=== PATIENT | female | born 1960 | race African-American/Black ===

== ENCOUNTER 2016-04-14 09:30 | Emergency (ER) | payer OTHER ==
[2016-04-14 09:37] VITALS: PULSE 87; TEMP 97.4; BMI 35.2
[2016-04-14 10:50] VITALS: BP 138/76
--- NOTE | 2016-04-14 10:56 | EDPRACDOC ---
- General Information Chief Complaint: Generalized Weakness Stated Complaint: HEARTRATE CHECK Time Seen by Provider: 04/14/16 09:39 Information Source: Patient Mode Of Arrival: Car - History of Present Illness Onset: unknown HPI: PT PRESENTS TODAY REQUESTING MEDICAL CLEARANCE FOR HER JOB. PT STATES THAT SHE NEEDS CLEARANCE TO PERFORM A PHYSICAL TEST. STATES THAT AT WORK, THEY PERFORMED VITAL SIGNS AND WAS FOUND TO HAVE HEART RATE OF 109, AND HR IS REQUIRED TO BE LESS THAT 100 FOR THE TEST. PT HAS NO PHYSICAL SYMPTOMS. NO PMH /MEDS. Relevent History of: Reports: None Hypertension Treatment: Reports: None Recent Use of: Reports: None Associated Signs and Symptoms: Reports: None ED Past Medical History - History Reviewed Yes Nurses notes reviewed and agree except as marked - Patient Medical History Cardiac History: Reports: Hypercholesterolemia EDM Review of Systems - Review of Systems ROS Negative Except as Marked: Yes All systems reviewed and were negative except as marked Constitutional: No Symptoms Reported Respiratory: No Symptoms Reported Cardiovascular: No Symptoms Reported Gastrointestinal: No Symptoms Reported Neurological: No Symptoms Reported Musculoskeletal: No Symptoms Reported Integumentary: No Symptoms Reported - Physical Exam Constitutional: Alert (Awake), No apparent distress Oriented to: Time, Person, Place Last recorded Vital Signs: Last Vital Signs Temp 97.4 F L 04/14/16 09:34 Pulse 87 04/14/16 09:34 Resp 16 04/14/16 09:34 BP 138/76 04/14/16 10:50 Pulse Ox 99 04/14/16 09:34 Oxygen Pulse Oxygen Saturation 99 O2 Device Room Air Oxygen Flow Rate Fraction of Inspired Oxygen ( FIO2) - HEENT Head: Normal Eye Exam: Normal Neck: Normal, Denies Pain, Midline - Respiratory/Cardiovascular Respiratory: Normal - CTA Cardiovascular: Normal - GI Palpation: Normal Tenderness: Non tender - Musculoskeletal Back: Normal Extremities: Normal - Integumentary Skin: Normal Lymphatics: Normal - Neurologic Mood Description: Normal Thought: Coherent Perception: Normal - Additional Information BLOOD PRESSURE HIGH ON AUTOMATIC BP, BUT NORMALIZED WITH MANUAL READING. PTS PAPERWORK SIGNED BY DR. EWING FOR MEDICAL CLEARANCE. Decision Time to Discharge: 10:57 - Departure Disposition: Home Condition: Good Final Diagnosis: Well adult health check Instructions: Weakness (General) Education/Counseling Given To: Patient Education/Counseling Given Regarding: Diagnosis, Treatment, Follow Up Referrals: None,No Provider [Primary Care Provider] - One Week Additional Instructions: YOU ARE MEDICALLY CLEARED TO PERFORM FITNESS TEST FOR WORK.
== END 2016-04-14 11:06 | disposition home or self-care (01) ==
LOC: ED 09:30
DX: Z02.79 Encounter for issue of other medical certificate (principal)
CPT/HCPCS: 99282